=== PATIENT | female | born 1975 | race Caucasian/White ===

== ENCOUNTER 2020-12-28 19:40 | Emergency (ER) | payer SELFPAY ==
[2020-12-28] MEDS ORDERED: [UNRECOGNIZED DRUG - OTHER] (20:59)
[2020-12-28] MEDS ORDERED: AMOXICILLIN AND1 TA2 PO (21:11)
[2020-12-28 21:45] VITALS: BP 119/90
== END 2020-12-28 21:21 | disposition home or self-care (01) ==
LOC: ED 19:40
DX: S51.851A Open bite of right forearm, initial encounter (principal); W54.0XXA Bitten by dog, initial encounter; Y92.009 Unspecified place in unspecified non-institutional (private) residence as the place of occurrence of the external cause

== ENCOUNTER → 2021-01-06 | Outpatient (CLI) | payer SELFPAY ==
[2020-12-28 21:45] VITALS: BP 119/90
[~2021-01-06] MED LIST: AMOXICILLIN AND1 TA2 PO; [UNRECOGNIZED DRUG - OTHER]
[2021-01-06 12:41] LABS: BASO # 0.07 (0.02-0.10); EOS % 3.4 % (1.0-5.0); HEMATOCRIT 42.4 % (37.0-47.0); HEMOGLOBIN 14.3 g/dL (12.5-16.0); LYMPH# 1.51 (1.50-4.00); MEAN CELL VOLUME 94 fl (78-100); MEAN CORPUSCULAR HEMOGLOBIN 32 pg (27-31); MEAN CORPUSCULAR HGB CONC 34 g/dL (33-37); MONO # 0.75 (0.20-0.80); NEU # 3.26 (1.40-6.50); PLATELET COUNT 284 K/mm3 (130-400); RED BLOOD COUNT 4.53 M/mm3 (4.10-5.30); RED CELL DISTRIBUTION WIDTH 12.5 % (11.5-14.5); WHITE BLOOD COUNT 5.8 K/mm3 (4.8-10.8)
[2021-01-06 12:51] LABS: ALBUMIN 4.5 g/dL (3.5-5.0); POTASSIUM 4.1 mmol/L (3.5-5.1)
[2021-01-06 12:52] LABS: CALCIUM 9.4 mg/dL (8.3-10.5)
[2021-01-06 12:53] LABS: TOTAL PROTEIN 7.4 g/dL (6.4-8.3)
[2021-01-06 12:55] LABS: TOTAL BILIRUBIN 0.4 mg/dL (0.2-1.2)
== END ==
LOC: LAB 12:08
PROVIDERS: Nurse Practitioner
DX: W54.0XXD Bitten by dog, subsequent encounter (principal)